=== PATIENT | male | born 1985 | race American Indian/Alaskan Native ===

== ENCOUNTER 2022-08-10 16:51 | Emergency (ER) | payer MEDICAID, OTHER ==
[~2022-08-10] VITALS: Ht 175.3 cm; Wt 75.0 kg
[~2022-08-10 16:51] MED LIST: IBUP-1984 PO; PENI500T2 PO; TRAM50TA2 PO
[2022-08-10 17:15] VITALS: BP 124/85
== END 2022-08-10 18:54 | disposition home or self-care (01) ==
LOC: ER 16:52
DX: M25.432 Effusion, left wrist (principal); M25.532 Pain in left wrist; Z88.2 Allergy status to sulfonamides; Z79.899 Other long term (current) drug therapy; Z79.1 Long term (current) use of non-steroidal anti-inflammatories (NSAID)
CPT/HCPCS: 29125; 99283; A4565

== ENCOUNTER 2022-08-18 12:44 | Emergency (ER) | payer OTHER ==
[~2022-08-18] VITALS: Ht 175.3 cm; Wt 81.8 kg
[2022-08-18 13:12] VITALS: BP 147/95
== END 2022-08-18 15:59 | disposition home or self-care (01) ==
LOC: ER 12:45
DX: G89.18 Other acute postprocedural pain (principal); M79.642 Pain in left hand; Z72.89 Other problems related to lifestyle; Z98.890 Other specified postprocedural states; Z88.2 Allergy status to sulfonamides; Z79.899 Other long term (current) drug therapy
CPT/HCPCS: 99282; A6449